=== PATIENT | male | born 1950 | race Caucasian/White ===

== ENCOUNTER 2016-08-11 04:55 | Inpatient (IN) ==
[2016-08-09 12:12] LABS: Appearance,Urine CLEAR; Bilirubin,Urine NEG (NEG); Color,Urine YELLOW; Glucose,Urine (UA) NEGATIVE (NEG); Leukocyte Esterase,Urine NEG /uL (NEG); Nitrate,Urine NEG (NEG); Protein,Urine NEG (NEG); Specific Gravity,Urine 1.018 (1.000-1.035); Urine Blood NEG mg/dL (<0.03); Urobilinogen,Urine NEG (NEG)
[2016-08-09 13:28] LABS: Basophils # (Auto) 0 K/mcL (0.0-0.3); Basophils % (Auto) 0.1 % (0.0-2.0); Eosinophils # (Auto) 0 K/mcL (0.0-0.7); Eosinophils % (Auto) 0.7 % (0.0-7.0); Granulocytes % (Auto) 73.1 % (38.0-78.0); Lymphocytes # (Auto) 0.9 K/mcL (1.5-4.8); Lymphocytes % (Auto) 14.3 % (15.5-49.0); Mean Cell Volume 95.5 fL (80.0-100.0); Mean Corpuscular HGB Conc 33.5 g/dL (31.0-36.0); Monocytes # (Auto) 0.8 K/mcL (0.1-0.9); Monocytes % (Auto) 11.8 % (1.0-9.0); Platelet Count 263 K/mcL (140-440); RBC 5.26 M/mcL (4.50-5.90); Red Cell Distribution Width 13.5 % (11.5-14.5)
[2016-08-09 13:32] LABS: Blood Urea Nitrogen 13 mg/dl (8-23)
[2016-08-11] MEDS ORDERED: oxyCODONE 10 MG TAB.ER.12H PO SCH (06:00)
[2016-08-11] MEDS ORDERED: PREGABALIN 150 MG CAPSULE PO SCH (06:00)
[2016-08-11] MEDS ORDERED: CELECOXIB 200 MG CAPSULE PO SCH (06:00)
[2016-08-11] MEDS ORDERED: SCOPOLAMINE 1 PATCH PATCH TOPICAL ONE (06:58)
[2016-08-11] MEDS: ceFAZolin 1 GM VIAL IV SCH ×3 (07:25→16:09)
[2016-08-11] MEDS ORDERED: LIDOCAINE HCL/PF 100 MG/5 ML SYRINGE IV ONE (07:45)
[2016-08-11] MEDS ORDERED: DEXAMETHASONE 10 MG/ML VIAL IV ONE (07:45)
[2016-08-11] MEDS ORDERED: PROPOFOL 200 MG/20 ML VIAL IV ONE (07:45)
[2016-08-11] MEDS ORDERED: ePHEDrine 50 MG/ML AMPUL IV ONE (07:45)
[2016-08-11] MEDS ORDERED: MIDAZOLAM 5 MG/5 ML VIAL IV ONE (07:45)
[2016-08-11] MEDS ORDERED: ONDANSETRON 4 MG/2 ML VIAL IV ONE (07:45)
[2016-08-11] MEDS ORDERED: GLYCOPYRROLATE 0.2 MG/ML VIAL IV ONE (07:45)
[2016-08-11] MEDS ORDERED: PHENYLEPHRINE 10 MG/ML VIAL IV ONE (07:45)
[2016-08-11] MEDS ORDERED: TRANEXAMIC ACID 1,000 MG/10 ML VIAL IV ONE ×2 (07:45→09:23)
[2016-08-11] MEDS ORDERED: HEPARIN 10,000 UNIT/ML VIAL IR ONE (08:29)
[2016-08-11] MEDS ORDERED: LACTATED RINGERS 250 ML IV PRN (08:37)
[2016-08-11] MEDS ORDERED: NALOXONE HCL 0.4 MG/ML VIAL IV PRN (08:37)
[2016-08-11] MEDS ORDERED: MEPERIDINE 25 MG/ML SYRINGE IV PRN (08:37)
[2016-08-11] MEDS ORDERED: ePHEDrine 50 MG/ML AMPUL IV PRN (08:37)
[2016-08-11] MEDS ORDERED: ONDANSETRON 4 MG/2 ML VIAL IV PRN ×2 (08:37→09:23)
[2016-08-11] MEDS ORDERED: diphenhydrAMINE 50 MG/ML VIAL IV PRN (08:37)
[2016-08-11] MEDS ORDERED: PROMETHAZINE 25 MG/ML VIAL IV PRN (08:37)
[2016-08-11] MEDS ORDERED: BENZOCAINE/MENTHOL 1 LOZENGE PO PRN ×2 (08:37→09:23)
[2016-08-11] MEDS ORDERED: HYDROmorphone 2 MG/ML SYRINGE IV PRN (08:37)
[2016-08-11] MEDS ORDERED: FLUMAZENIL 0.1 MG/ML ML IV PRN (08:37)
[2016-08-11] MEDS ORDERED: IPRATROPIUM/ALBUTEROL 3 ML AMPUL.NEB NEB PRN (08:37)
[2016-08-11] MEDS ORDERED: METHOCARBAMOL 1,000 MG/10 ML VIAL IV PRN (08:37)
[2016-08-11] MEDS ORDERED: METOCLOPRAMIDE 10 MG/2 ML VIAL IV PRN (08:37)
[2016-08-11] MEDS ORDERED: LACTATED RINGERS 1,000 ML IV SCH (08:45)
[2016-08-11] MEDS ORDERED: POLYETHYLENE GLYCOL 3350 17 GM PACKET PO PRN (09:23)
[2016-08-11] MEDS ORDERED: MAGNESIUM HYDROXIDE 30 ML ORAL.SUSP PO PRN (09:23)
[2016-08-11] MEDS ORDERED: BISACODYL 10 MG SUPP.RECT PR PRN (09:23)
[2016-08-11] MEDS ORDERED: FLEETS ADULT ENEMA PR PRN (09:23)
--- NOTE | 2016-08-11 09:23 | Brief Operative Note ---
Date of procedure: 08/11/16 Pre-op diagnosis: Left hip DJD Post-op diagnosis: same Procedure: Left RAMA Grafts/Implants: Yes (Depuy Corail HO 13 stem, +12 36 delta head, 54 Cup, neutral Altrx liner) Anesthesia: spinal, GLMA Findings: above Complications: none Surgeon: Brandon Engel Film Editor: Alex Don Estimated blood loss (cc): 200 Specimens Removed/Pathology: none sent Condition: stable Disposition: PACU
[2016-08-11] MEDS: fentaNYL 100 MCG/2 ML VIAL IV PRN ×2 (10:20→10:23)
--- NOTE | 2016-08-11 10:29 | Operative Note ---
DATE OF OPERATION: 08/11/2016 PREOPERATIVE DIAGNOSIS: Left hip advanced osteoarthritis. POSTOPERATIVE DIAGNOSIS: Left hip advanced osteoarthritis. PROCEDURE PERFORMED: Left total hip arthroplasty through direct anterior approach using a DePuy Corail collarless high offset size 13 stem, a +12 36 mm delta ceramic head ball with a 54 Woolrich cup and a neutral AltrX liner. SURGEON: Brandon Engel MD. SEWER LINE PHOTO INSPECTOR: Alex Don PA-C. ANESTHESIA: Spinal plus LMA general. DRAINS: None. SPECIMENS: Femoral head and reamings, which were discarded. BLOOD LOSS: 200 mL COMPLICATIONS: None. POSTOPERATIVE CONDITION: Stable. INDICATIONS FOR SURGERY: This is a 65-year-old male who has had progressive worsening left hip pain, had a history of previous right total hip arthroplasty, which he was very pleased with. FINDINGS AT SURGERY: As above. Post implantation showed components in good position with similar leg lengths and offset. PROCEDURE IN DETAIL: The patient had been seen preoperatively. Informed consent had been obtained after discussion of risks and benefits of surgery. Risks including, but not limited to, bleeding, possibly requiring transfusion; infection, possibly requiring implant removal and prolonged IV antibiotics; injury to nerves, blood vessels, and other surrounding structures; anesthetic risks; incomplete or no resolution of symptoms; leg length discrepancy; dislocation; fracture; DVT and pulmonary embolus risks. He understood these risks and wished to proceed. The patient was marked in preoperative holding and received spinal anesthesia. He was then taken to the operating room and LMA general given. He was carefully positioned on the fracture table and then the left hip and groin were carefully prepped and draped in normal sterile fashion and a time-out was performed verifying patient name, operative site, and plan. Standard anterior approach incision was made with a scalpel through skin and subcutaneous tissue and hemostasis was obtained with Bovie cautery. Blunt dissection was used to carefully dissect down onto the tensor fascia. This was undermined circumferentially. IrriSept was irrigated in the wound and then the ring retractor was placed. Tensor fascia was incised in line with the muscle fibers and then careful blunt dissection was taken medial to the muscle belly. Blunt cobra retractors were placed on the superior and inferior neck and then circumflex vessels were coagulated and cut. We also released vastus fascia distally. An anterior capsulectomy was performed and capsule releases taken down towards the lesser and out towards the greater trochanters. Once we had adequate releases, a corkscrew was placed in the femoral head. Osteotome was used under fluoro to identify our neck cut trajectory. An oscillating tip saw was used to make our femoral neck cut. Femoral head was levered out and leg was externally rotated 45 degrees. Acetabulum was exposed. There was some brisk bleeding from the cancellous bone surface and bone wax was placed. We then performed resection of the labrum circumferentially as well as soft tissue from the floor. We then started reaming, initially directly medializing down to the tear drop and then increased reamer size until a 53 got a good rim ream and we had bleeding bone circumferentially. We trialed a 53 trial and had excellent press fit. A 3-hole 54 Woolrich cup was opened. We irrigated IrriSept in the acetabulum and after letting this sit a minute we copiously pulse lavaged with saline. We then impacted the cup approximately 40 degrees of inclination and 25 degrees of anteversion. This was fully seated with excellent press fit. We went ahead and placed a neutral AltrX liner. The tabs were carefully aligned and impacted. We then carefully made sure that all tabs were flush. We then externally rotated the leg, and completed our capsule release around the posterior neck. Traction was removed from the leg and it was extended and adducted. Box osteotome was used to gain canal entry and then a rongeur and rasp were used to lateralize, awl was used to identify canal trajectory. We began sequentially broaching up to a size 13 stem which was what we templated and appeared to be the same size as his opposite side, this seated below our neck cut, which was a little bit long, so we calcar planed down. We started off with a +5 trial and ended up going up to a +8.5 and our offset still was not quite what the opposite side was; however, stem and fill looked good. The 13 trial was removed. IrriSept was irrigated in the femoral canal. After waiting a minute, we copiously pulse lavaged with saline. We then impacted the stem down. This seated right at our neck cut level, so we went ahead and opened a +12 head ball. The stem was cleaned and dried and then head ball was briskly impacted. The hip was reduced without excessive tension. Final fluoro images were taken and saved and printed. We irrigated again with IrriSept, after a minute copiously pulse lavaging. We then used #1 Vicryl to run the tensor fascia repair, one running proximal and one running distal. We then removed the ring retractor and upon removal noted that it looked like a small branch of the lateral femoral cutaneous nerve had avulsed. We dissected this out carefully and then found what we thought was the other end of the nerve laterally and used a 5-0 Monocryl to repair the nerve end to end. We then did our final IrriSept and then pulse lavaged and then 2-0 Monocryl was used for subcutaneous and miri for skin. Xeroform and sterile dressing were applied. The patient was then awakened, extubated, and transferred to recovery in stable condition. BJB:susy Job ID: [id number] Doc ID: [id number] Brandon Engel MD
[2016-08-11] MEDS: KETOROLAC 15 MG/ML VIAL IV PRN (11:07)
[2016-08-11] MEDS: LACTATED RINGERS 1,000 ML IV SCH ×2 (11:08→20:56)
--- NOTE | 2016-08-11 11:41 | XRay Report ---
CLINICAL INFORMATION: Postop total hip prostheses COMPARISON: None. FINDINGS: Left total hip prostheses is anatomically aligned. There is soft tissue swelling over the surgical site - as expected. Older right total hip prostheses remains anatomically aligned without loosening or infection. Both SI joints show only minimal degenerative change. IMPRESSION: Negative Interpreted and Authenticated by: Sal Cortez 08/11/16
[2016-08-11] MEDS: 0.9 % SODIUM CHLORIDE 10 ML SYRINGE IV SCH ×2 (12:34→20:56)
[2016-08-11] MEDS: HYDROmorphone 2 MG/ML SYRINGE IV PRN ×2 (12:37→16:24)
[2016-08-11] MEDS: HYDROcodone/APAP 10/325MG TABLET PO PRN ×2 (12:43→21:07)
[2016-08-11] MEDS: SENNOSIDES 1 TABLET PO SCH (20:56)
[2016-08-11] MEDS: DOCUSATE SODIUM 100 MG CAPSULE PO SCH (20:56)
[2016-08-11] MEDS: ASPIRIN 325 MG ENTERIC COATED TABLET PO SCH (20:56)
[2016-08-12] MEDS: HYDROmorphone 2 MG/ML SYRINGE IV PRN ×2 (00:01→13:54)
[2016-08-12] MEDS: ceFAZolin 1 GM VIAL IV SCH (00:01)
[2016-08-12] MEDS: HYDROcodone/APAP 10/325MG TABLET PO PRN ×3 (02:30→19:48)
[2016-08-12] MEDS: 0.9 % SODIUM CHLORIDE 10 ML SYRINGE IV SCH ×3 (05:43→22:08)
[2016-08-12] MEDS: LACTATED RINGERS 1,000 ML IV SCH ×2 (05:43→19:16)
[2016-08-12] MEDS: KETOROLAC 15 MG/ML VIAL IV PRN (07:36)
[2016-08-12] MEDS: ASPIRIN 325 MG ENTERIC COATED TABLET PO SCH ×2 (10:13→22:07)
[2016-08-12] MEDS: LOSARTAN 50 MG TABLET PO SCH (10:13)
[2016-08-12] MEDS: DOCUSATE SODIUM 100 MG CAPSULE PO SCH ×2 (10:13→22:07)
--- NOTE | 2016-08-12 12:38 | XRay Report ---
CLINICAL INFORMATION: Left total hip replacement - anterior approach COMPARISON: None. FINDINGS: Digital images submitted from the OR show left total hip prostheses placement the anterior approach in various stages of implementation. Final film shows the left hip prostheses anatomically aligned. The older right total hip prostheses is also anatomically aligned without evidence of loosening or infection. IMPRESSION: Left total hip prostheses in anatomic alignment Interpreted and Authenticated by: Sal Cortez 08/12/16
--- NOTE | 2016-08-12 18:10 | Orthopedic Progress Note ---
Orthopedics - Auxillary Note - Subjective Patient Information: Note initiated : 08/12/16 at 6:08 pm Service Date, if different from initiated Date: [] Patient: Zak Elizondo 65 y/o M admitted on 08/11/16 for Left Total Hip Arthroplasty. Chief Complaint: MILD TO MODERATE PAIN BANDAGES C/D/I NVI-DISTAL Vital Signs Temp Pulse Resp BP BP Pulse Ox 08/12/16 16:00 98.7 F 85 18 161/78 94 08/12/16 12:00 98.5 F 68 14 145/78 98 08/12/16 11:00 67 08/12/16 08:00 62 16 95 08/12/16 07:42 96 08/12/16 06:32 98.4 F 62 16 132/69 95 08/12/16 03:45 97.6 F 67 12 136/83 95 08/11/16 23:38 97.7 F 65 12 116/63 95 08/11/16 20:00 97.9 F 67 12 121/65 94 Intake and Output 08/12/16 08/12/16 08/12/16 05:59 13:59 21:59 Intake Total 600 / 600 840 / 840 700 / 700 Output Total 275 / 275 475 / 475 275 / 275 Balance 325 / 325 365 / 365 425 / 425 Intake: Oral 600 / 600 840 / 840 700 / 700 Output: Void Amount 275 / 275 475 / 475 275 / 275 Other: Meal Breakfast Percent of Meal Consumed 100% Feeding Ability Independent # Voids 1 Laboratory Results - last 24 hr 08/12/16 04:15 Hgb 12.2 L Hct 36.4 L S/P L TOTAL HIP ARTHROPLASTY-STABLE MOBILIZE WITH PT DISCHARGE TO HOME TOMORROW 08/13/16
[2016-08-12] MEDS: SENNOSIDES 1 TABLET PO SCH (22:07)
[2016-08-13] MEDS: LACTATED RINGERS 1,000 ML IV SCH (01:15)
[2016-08-13] MEDS: KETOROLAC 15 MG/ML VIAL IV PRN (04:35)
[2016-08-13] MEDS: HYDROcodone/APAP 10/325MG TABLET PO PRN (04:35)
[2016-08-13] MEDS: 0.9 % SODIUM CHLORIDE 10 ML SYRINGE IV SCH (04:36)
[2016-08-13] MEDS: DOCUSATE SODIUM 100 MG CAPSULE PO SCH (09:20)
[2016-08-13] MEDS: ASPIRIN 325 MG ENTERIC COATED TABLET PO SCH (09:21)
[2016-08-13] MEDS: LOSARTAN 50 MG TABLET PO SCH (09:22)
[2016-08-13] MEDS ORDERED: oxyCODONE/APAP 5/325MG TABLET PO PRN (11:53)
--- NOTE | 2016-08-13 11:56 | Discharge Summary ---
Providers - Providers Patient information: Note initiated : 08/13/16 at 11:54 am Service Date, if different from initiated Date: [] Patient: Zak Elizondo 65 y/o M admitted on 08/11/16 for Left Total Hip Arthroplasty. Chief Complaint: [] Date of admission: 08/11/16 Discharge date: 08/13/16 Attending physician: Brandon Engel Hospitalization Hospital course: Post op course was uneventful. Discharge diagnosis: s/p Left total hip arthroplasty Reason for admission: Left hip pain Procedures: Left total hip arthroplasty Exam - Exam Incision swollen: Yes Clean and dry: Yes Weight bearing status: as tolerated Ortho Discharge - RAMA - Patient Instructions Diet: Regular Diet Activity: weight bearing as tolerated Total Hip Protocol: Follow activity instructions as provided by Physical Therapy. Dressing Care: Aquacel Ag - leave on for 5 days Patient Education: Total Hip Replacement (DC), Revision Total Joint Arthroplasty (DC) Additional Instructions: Discharge Instructions: Do the exercises at home that physical therapy gave you. You are scheduled to start physical therapy at [facility] on @ 10:00 am, please arrive 15 minutes early for paperwork. Take your prescription, photo ID, insurance cards, and current medication list with you to your first physical therapy appointment. 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 Weight bearing as tolerated. If you have the Aquacel Ag dressing, leave in place for 7 days then remove. If dressing becomes soiled (turns black), remove and use gauze 4x4 dressing and silvasorb ointment and change daily. Keep incision clean and dry. If you have Dermabond (a dressing with a mesh-like appearance), leave open to air. You may start showering on post op day #2. The Dermabond dressing can get wet, do not scrub dressing. Pat dry. To avoid constipation while taking any narcotic pain medication, take an over the counter stool softener/laxative. Use your Cryocuff or ice packs as directed, on for 20 minutes at a time throughout the day. This and elevation will help with pain and swelling. Call your physician for fevers above 100.5 or pain not controlled by medication. Your prescriptions are with your discharge information. Some medications were electronically transmitted to your pharmacy of choice. - Follow Up Plan Follow Up Appointments: Brandon Engel MD [Physician] - Disposition: Home, Self-Care Prognosis: Good Rehab Potential: Good - Orders For Discharge Additional Discharge Orders: Physical Therapy at Discharge - RAMA Location: Determined By Patient Toilet Riser Discharge Order Location: Determined By Patient Walker Location: Determined By Patient Pending Studies Resuscitation Status Full Code Diet Regular Diet Start TueAug 11 Lunch Aspirin (Ecotrin) 325 mg PO BID [facility] Last Admin: 08/13/16 09:21 Dose: 325 mg Admin: 08/12/16 22:07 Dose: 325 mg Admin: 08/12/16 10:13 Dose: 325 mg Admin: 08/11/16 20:56 Dose: 325 mg Docusate Sodium (Colace) 100 mg PO BID [facility] Last Admin: 08/13/16 09:20 Dose: 100 mg Admin: 08/12/16 22:07 Dose: 100 mg Admin: 08/12/16 10:13 Dose: 100 mg Admin: 08/11/16 20:56 Dose: 100 mg Hydromorphone HCl (Dilaudid) 0 mg IV Q2HP PRN PRN Reason: Pain Last Admin: 08/12/16 13:54 Dose: 2 mg Admin: 08/12/16 00:01 Dose: 0.5 mg Admin: 08/11/16 16:24 Dose: 0.5 mg Admin: 08/11/16 12:37 Dose: 0.5 mg Lactated Ringer's (Lactated Ringers) 1,000 mls @ 100 mls/hr IV .Q10H [facility] Last Admin: 08/13/16 01:15 Dose: Admin: 08/12/16 19:16 Dose: Not Given Admin: 08/12/16 05:43 Dose: Not Given Admin: 08/11/16 20:56 Dose: 100 mls/hr Infusion: 08/11/16 20:56 Dose: 100 mls/hr Admin: 08/11/16 11:08 Dose: 100 mls/hr Losartan Potassium (Cozaar) 100 mg PO DAILY [facility] Last Admin: 08/13/16 09:22 Dose: Admin: 08/12/16 10:13 Dose: 100 mg Magnesium Hydroxide (Milk Of Magnesia) 30 ml PO BIDP PRN PRN Reason: Constipation Last Admin: 08/13/16 09:22 Dose: 30 ml Ondansetron HCl (Zofran) 4 mg IV Q4HP PRN PRN Reason: Nausea And Vomiting Last Admin: 08/12/16 19:52 Dose: 4 mg Senna (Senokot) 2 tab PO HS [facility] Last Admin: 08/12/16 22:07 Dose: 2 tab Admin: 08/11/16 20:56 Dose: 2 tab Sodium Chloride (Saline Flush) 10 ml IV Q8 [facility] Last Admin: 08/13/16 04:36 Dose: 10 ml Admin: 08/12/16 22:08 Dose: 10 ml Admin: 08/12/16 13:54 Dose: 10 ml Admin: 08/12/16 05:43 Dose: Not Given Admin: 08/11/16 20:56 Dose: Not Given Admin: 08/11/16 12:34 Dose: Not Given Shift Summary 08/13/16 07:24 Shift Summary by Jyotsna Weems Addendum entered by Jyotsna Weems 08/13/16 07:28: Verbal report given to oncoming shift. Original Note: Has been medicated with Hydrocodone and Toradol twice for 4/10 pain. Left hip with drsg CDI. CMS intact. OOB with FWW and SBA. Voiding per urinal. Recent tib/fix fx to right ankle with air cast. Using IS up to 2500ml. VSS. Poss D/ C home today with spouse. Initialized on 08/13/16 07:24 - END OF NOTE
== END 2016-08-13 14:20 | disposition home or self-care (01) | DRG 470 ==
LOC: MEDSUR 04:55
PROVIDERS: ADMIT Orthopaedic Surgery; ATTEND Orthopaedic Surgery